=== PATIENT | male | born 1995 | race Caucasian/White ===

== ENCOUNTER 2025-05-29 17:33 | Emergency (ER) | payer MEDICAID, OTHER ==
[~2025-05-29] VITALS: Ht 177.8 cm; Wt 74.8 kg
[2025-05-29 17:58] VITALS: BP 128/82; TEMP 98; O2SAT 97
[2025-05-29] MEDS ORDERED: TETRAcaine 5 ML BOTTLE ONE (18:54)
[2025-05-29] MEDS ORDERED: FLUORESCEIN SODIUM OPHTH 1 EA STRIP ONE (18:54)
[2025-05-29] MEDS ORDERED: ERYT3.5O9 EACHEYE (20:06)
== END 2025-05-29 20:33 | disposition home or self-care (01) ==
LOC: ER 17:40
DX: H10.9 Unspecified conjunctivitis (principal); F17.200 Nicotine dependence, unspecified, uncomplicated